=== PATIENT | male | born 1950 | race Caucasian/White ===

== ENCOUNTER 2024-01-05 05:26 | Observation (INO) | payer MEDICARE ==
[2024-01-04 09:57] LABS: INR 0.81; PROTHROMBIN TIME 11.6 seconds (11.9-14.5)
[2024-01-04 09:58] LABS: PARTIAL THROMBOPLASTIN TIME 27.4 seconds (23.8-35.5)
[2024-01-04 10:00] LABS: BASOPHILS # (AUTO) 0.1 (0.0-0.1); BASOPHILS % 0.8 % (0.0-1.0); EOSINOPHILS # (AUTO) 0.1 (0.0-0.4); EOSINOPHILS % 1.4 % (0.0-6.0); HEMATOCRIT 39.4 % (38.2-49.6); HEMOGLOBIN 13.2 g/dL (14.0-18.0); LYMPHOCYTES # (AUTO) 0.8 (1.0-3.2); LYMPHOCYTES % 10.4 % (18.0-39.1); MEAN CORPUSCULAR HEMOGLOBIN 37.4 pg (28-32); MEAN CORPUSCULAR HGB CONC 33.5 g/dL (31-35); MEAN CORPUSCULAR VOLUME 111.6 fL (81-99); MONOCYTES # (AUTO) 0.8 (0.2-0.8); MONOCYTES % 10.9 % (4.4-11.3); NEUTROPHILS # (AUTO) 5.6 (2.1-6.9); NEUTROPHILS % 76.2 % (38.7-80.0); PLATELET COUNT 365 x10e3/uL (140-360); RED BLOOD COUNT 3.53 x10e6/uL (4.3-5.7); RED CELL DISTRIBUTION WIDTH 15.9 % (11.7-14.4); WHITE BLOOD COUNT 7.31 x10e3/uL (4.8-10.8)
[2024-01-04 10:06] LABS: ANION GAP 13.3 mmol/L (8-16); CALCIUM 9.4 mg/dL (8.4-10.2); CREATININE, SERUM 1.08 mg/dL (0.72-1.25); POTASSIUM 4.3 mmol/L (3.5-5.1)
[~2024-01-05] VITALS: Ht 182.9 cm; Wt 79.4 kg
[~2024-01-05 05:26] MED LIST: AMLODIPINE BESYL5 MG PO; ATORVASTATIN CA20 MG PO; B12; BUPROPION HCL100 MG PO; IMURAN50 MG PO; MELOXICAM7.5 MG PO; MULTI-VITAMIN1 EACH PO; NEURONTIN300 MG PO; ULTRAM 50MG50 MG PO
[2024-01-05] MEDS: LACTATED RINGER'S 1,000 ML ONE (05:52)
[2024-01-05] MEDS: CEFAZOLIN SODIUM 2 GM ONE (05:52)
[2024-01-05] MEDS ORDERED: Vancomycin IV 1 GM VIAL ONE (06:37)
[2024-01-05] MEDS ORDERED: LIDOCAINE 1% W/EPINEPHRINE 20 ML VIAL ONE (06:37)
[2024-01-05] MEDS ORDERED: THROMBIN FOR SOLN 5,000 UNIT VIAL ONE (06:37)
[2024-01-05] MEDS ORDERED: SUGAMMADEX SODIUM 200 MG/2 ML VIAL IV ONE (07:03)
[2024-01-05] MEDS ORDERED: ACETAMINOPHEN 1000 MG/100 ML 100 ML IV ONE (07:03)
[2024-01-05] MEDS ORDERED: HYDROCODON-ACE1 EA12 PO (08:59)
[2024-01-05] MEDS ORDERED: MAGNESIUM/ALUMINUM/SIMETHICONE 30 ML UDC PO PRN (09:00)
[2024-01-05] MEDS ORDERED: Morphine 4mg INJECTION 4 MG/ML INJ IM PRN (09:00)
[2024-01-05] MEDS ORDERED: CEPACOL SORE THROAT LOZENGES PO PRN (09:00)
[2024-01-05] MEDS ORDERED: HYDROMORPHONE 2MG/ML IV PRN (09:00)
[2024-01-05] MEDS ORDERED: PROMETHAZINE HCL (IM) 25 MG/ML VIAL IM PRN (09:00)
[2024-01-05] MEDS ORDERED: ACETAMINOPHEN 325 MG TAB PO PRN (09:00)
[2024-01-05] MEDS ORDERED: ZOLPIDEM TARTRATE 5 MG TAB PO PRN (09:00)
[2024-01-05] MEDS ORDERED: ONDANSETRON HCL INJ 2MG/ML 2ML 2 MG/ML VIAL IV PRN (09:00)
[2024-01-05] MEDS: LACTATED RINGER'S 1,000 ML IV SCH (09:00)
[2024-01-05] MEDS: HYDROMORPHONE 1MG/1ML INJ ONE ×2 (09:08→09:18)
[2024-01-05] MEDS: OXYCODONE/ACETAMINOPHEN 5-325 1 EACH TABLET PO PRN (10:00)
[2024-01-05] MEDS: CARISOPRODOL 350 MG TAB PO PRN (10:00)
[2024-01-05] MEDS ORDERED: DEXAMETHASONE SOD PHOS INJ 4 MG/ML SDV ONE (10:50)
[2024-01-05] MEDS ORDERED: LIDOCAINE HCL 2% LOCAL INJ 5 ML SDV VIAL INJ ONE (10:50)
[2024-01-05] MEDS ORDERED: EPHEDRINE SULFATE INJ 50 MG/ML VIAL ONE (10:50)
[2024-01-05] MEDS ORDERED: ONDANSETRON HCL INJ 2MG/ML 2ML 2 MG/ML VIAL ONE (10:50)
[2024-01-05] MEDS ORDERED: ROCURONIUM BROMIDE 10 MG/ML 5ML VIAL IV ONE (10:50)
[2024-01-05] MEDS ORDERED: PROPOFOL IV EMULSION 10 MG/ML 20 ML VIAL ONE (10:50)
[2024-01-05] MEDS ORDERED: SEVOFLURANE INHAL SOLN 250 ML PEN BTL ONE (10:50)
[2024-01-05 12:14] VITALS: BP 123/71; PULSE 62; RESP 16; TEMP 97.6; O2SAT 94
[2024-01-05] MEDS: MULTIVITAMINS/MINERALS TAB PO SCH (12:52)
[2024-01-05] MEDS: BUPROPION HCL 100 MG TAB PO SCH (12:52)
[2024-01-05] MEDS: GABAPENTIN 300 MG CAP PO SCH (12:52)
[2024-01-05] MEDS: AMLODIPINE BESYLATE 5 MG TAB PO SCH (12:52)
[2024-01-05] MEDS: MELOXICAM 7.5 MG TAB PO SCH (12:53)
[2024-01-05] MEDS: TRAMADOL HCL 50 MG TAB PO SCH (12:54)
[2024-01-05] MEDS ORDERED: FENTANYL CITRATE/PF 100MCG/2 ML INJ ONE (12:59)
[2024-01-05] MEDS ORDERED: MIDAZOLAM HCL 2 MG/2 ML VIAL ONE (12:59)
[2024-01-05 15:35] VITALS: BP 111/68; PULSE 64; RESP 17; TEMP 97.7; O2SAT 96
[2024-01-05 20:00] VITALS: BP 141/80; PULSE 70; RESP 18; TEMP 97.8; O2SAT 96; O2SAT 99
[2024-01-05] MEDS: AZATHIOPRINE 50 MG TAB PO SCH (20:49)
[2024-01-05] MEDS: ATORVASTATIN 20 MG TAB PO SCH (20:49)
[2024-01-06 00:59] VITALS: BP 142/78; PULSE 66; RESP 17; TEMP 97.6; O2SAT 100
[2024-01-06 04:00] VITALS: BP 143/91; PULSE 67; RESP 18; TEMP 98; O2SAT 99
[2024-01-06 09:10] VITALS: BP 130/80; PULSE 65; RESP 16; TEMP 99.1; O2SAT 100
[2024-01-06] MEDS ORDERED: ONDANSETRON HCL 4 MG ORAL DISINTEGRATING TAB PO PRN (10:00)
== END 2024-01-06 10:15 | disposition home or self-care (01) ==
LOC: OR 05:26 → PACU V 08:58 → MED/SURG2 10:22
PROVIDERS: ADMIT Neurological Surgery; ATTEND Neurological Surgery
DX: M48.062 Spinal stenosis, lumbar region with neurogenic claudication (principal); M51.16 Intervertebral disc disorders with radiculopathy, lumbar region; E78.5 Hyperlipidemia, unspecified; I10 Essential (primary) hypertension; K50.90 Crohn's disease, unspecified, without complications
CPT/HCPCS: 36415; 63047; 63048; 71046; 72020; 80048; 85025; 85610; 85730; 86850; 86900; 88304; 88311; 93005; 97116 ×2; 97161; 97530; G0378 ×2; J0131; J0690; J1100; J1170; J2001; J2250; J2405; J2704; J3010; J3370; J7121; J7500